=== PATIENT | female | born 1930 | race Caucasian/White ===

== ENCOUNTER 2018-11-25 16:07 | Emergency (ER) | payer MEDICARE, BC ==
--- NOTE | 2018-11-25 16:21 | EDM.PDOC ---
ED HPI GENERAL MEDICAL PROBLEM - General Stated Complaint: HEADACHE AND ABD PAIN Time Seen by Provider: 11/25/18 16:17 Source of Information: Reports: Patient History Limitations: Reports: No Limitations - History of Present Illness INITIAL COMMENTS - FREE TEXT/NARRATIVE: 88 y.o.w.f with h/o HTN was seen in the UC clinic and transferred to the ED because of dizziness, H/A and abd. pain. Pt is a poor historian, HPI was given by her legal guardian. PT C/O of suprapubic pain and gen Headache. No trauma, No N/V, no other acute med issue. BP 151/65 RR 17 Pulse ox 97% on RSA Pulse 71 Temp 36.6 Onset Date: 11/25/18 Onset Time: 06:00 Duration: Hour(s):, Intermittent, Waxing/Waning Location: Reports: Head, Abdomen Quality: Reports: Dull, Same as Previous Episode Improves with: Reports: None Worsens with: Reports: None Context: Reports: Sick Contact headache Pain Score (Numeric/FACES): 7 - Related Data Allergies Allergy/AdvReac Type Severity Reaction Status Date / Time heparin Allergy Rash Verified 11/25/18 16:59 Home Meds: Home Meds Acetaminophen [Acetaminophen Extra Strength] 1,000 mg PO BID PRN 12/21/15 [ History] Aspirin [Halfprin] 81 mg PO DAILY 12/21/15 [History] DULoxetine [Cymbalta] 30 mg PO DAILY 12/21/15 [History] Gabapentin [Neurontin] 100 mg PO TID 12/21/15 [History] Meclizine [Antivert] 12.5 mg PO BID PRN 12/21/15 [History] Tolterodine Tartrate [Tolterodine Tartrate ER] 4 mg PO DAILY 12/21/15 [History] amLODIPine [Norvasc] 5 mg PO DAILY 05/10/16 [History] Anastrozole [Arimidex] 1 mg PO DAILY 04/09/18 [History] Calcium Carbonate/Vitamin D3 [Calcium Carbonate/Vitamin D 600 MG-200 Unit] 1 tab PO BID 04/09/18 [History] Cholecalciferol (Vitamin D3) [Vitamin D3] 1,000 units PO DAILY 04/09/18 [History ] Levothyroxine [Synthroid] 100 mcg PO MOTUTHFRSA 04/09/18 [History] Levothyroxine [Synthroid] 150 mcg PO SUWE 04/09/18 [History] Metoprolol Tartrate [Lopressor] 50 mg PO BID tablet 04/13/18 [Rx] metFORMIN [Glucophage] 500 mg PO BIDMEALS tablet 04/13/18 [Rx] Levofloxacin 500 mg PO DAILY #10 tablet 11/25/18 [Rx] traMADol [Ultram] 50 mg PO Q4H PRN #6 tab 11/25/18 [Rx] Past Medical History HEENT History: Reports: Hard of Hearing Cardiovascular History: Reports: High Cholesterol, Hypertension Respiratory History: Reports: Pneumonia, Recurrent, SOB Gastrointestinal History: Reports: Colon Polyp, Diverticulosis, GERD, Hiatal Hernia Genitourinary History: Reports: Urinary Incontinence, UTI, Recurrent, Other ( See Below) Other Genitourinary History: 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 FOR [place] [employer] History: Reports: None Musculoskeletal History: Reports: Arthritis, Back Pain, Chronic, Gout Neurological History: Reports: Headaches, Chronic Psychiatric History: Reports: None Endocrine/Metabolic History: Reports: Diabetes, Type II, Hypothyroidism Hematologic History: Reports: Anticoagulation Therapy, Bleeding Disorder Other Hematologic History: leukemia Immunologic History: Reports: None Oncologic (Cancer) History: Reports: Breast, Leukemia, Renal Other Oncologic History: kidney Dermatologic History: Reports: Eczema - Infectious Disease History Infectious Disease History: Reports: Chicken Pox, Measles, Mumps - Past Surgical History Head Surgeries/Procedures: Reports: None HEENT Surgical History: Reports: Tonsillectomy Cardiovascular Surgical History: Reports: None GI Surgical History: Reports: Appendectomy, Cholecystectomy, Colonoscopy, EGD, Other (See Below) Other GI Surgeries/Procedures: HEMORRHOID SURGERY Female Surgical History: Reports: Breast Biopsy, Mastectomy, Nephrectomy Other Female Surgeries/Procedures: RIGHT KIDNEY REMOVED Endocrine Surgical History: Reports: None Neurological Surgical History: Reports: Laminectomy Musculoskeletal Surgical History: Reports: Knee Replacement Other Musculoskeletal Surgeries/Procedures:: rtka Oncologic Surgical History: Reports: Bone Marrow Aspiration, Mastectomy Social & Family History - Family History Family Medical History: Noncontributory Cardiac: Reports: Heart Failure : Reports: Diabetic Nephropathy OBGYN: Reports: Musculoskeletal: Reports: Arthritis Neurological: Reports: Dementia Endocrine/Metabolic: Reports: Diabetes, type II Oncologic: Reports: Breast, Leukemia - Caffeine Use Caffeine Use: Reports: Tea ED ROS GENERAL - Review of Systems Review Of Systems: Unable To Obtain ED EXAM, GENERAL - Physical Exam Exam: See Below Exam Limited By: Altered Mental Status General Appearance: Alert, WD/WN, Mild Distress, Obese Eye Exam: Bilateral Eye: Normal Inspection Ears: Normal External Exam, Normal Canal Ear Exam: Bilateral Ear: Auricle Normal Nose: Normal Inspection, Normal Mucosa, No Blood Throat/Mouth: Normal Inspection, Normal Lips, Normal Voice, No Airway Compromise , Other (poor dentition) Head: Atraumatic, Normocephalic Neck: Normal Inspection, Supple, Non-Tender, Full Range of Motion Respiratory/Chest: No Respiratory Distress, Lungs Clear, Normal Breath Sounds, No Accessory Muscle Use, Chest Non-Tender Cardiovascular: Normal Peripheral Pulses, Regular Rate, Rhythm, No Edema, No Gallop, No Rub Peripheral Pulses: 2+: Femoral (L) GI/Abdominal: Normal Bowel Sounds, Soft, Tender (suprapubic tenderness) (Female) Exam: Deferred Rectal (Female) Exam: Deferred Neurological: Alert, Oriented, CN II-XII Intact, Normal Cognition, Abnormal Gait (baseline) Psychiatric: Normal Affect, Normal Mood Skin Exam: Warm, Dry, Intact, Normal Color, No Rash Lymphatic: No Adenopathy EKG INTERPRETATION EKG Date: 11/25/18 Time: 16:35 Rhythm: NSR Rate (Beats/Min): 67 Jewett: LAD-Left Jewett Deviation P-Wave: Present QRS: Normal ST-T: Normal QT: Normal Comparison: NA - No Prior EKG Course - Vital Signs Text/Narrative:: 88 y.o.w.f with h/o HTN was seen in the UC clinic and transferred to the ED because of dizziness, H/A, cough and abd. pain. Pt is a poor historian, HPI was given by her legal guardian. PT C/O of suprapubic pain and gen Headache. No trauma, No N/V, no other acute med issue. BP 151/65 RR 17 Pulse ox 97% on RSA Pulse 71 Temp 36.6 PE: WNWD WF with headache and low abd, pain and a cough Imaging: CT head: NAD, CXR: NAD Labs: Md 1.4 Cr 1.1 BUN 24 GFR 47 CBC nl except MCV was 97.9 UA pos pos for UTI without hematuria Impression: Tension H/A, UTI Tx: Levaquin, Pyridium. Ultram Reexam: Improved Plan: D/C with instructions Last Recorded V/S: Last Vital Signs Temp 36.6 C 11/25/18 18:28 Pulse 68 11/25/18 18:28 Resp 17 11/25/18 18:28 BP 108/90 11/25/18 18:28 Pulse Ox 97 11/25/18 18:28 - Orders/Labs/Meds Orders: Active Orders 24 hr Category Date Time Status Chest 2V [CR] Stat Exams 11/25/18 16:46 Taken Head wo Cont [CT] Stat Exams 11/25/18 16:27 Taken EKG 12 Lead [EK] Routine Ther 11/25/18 16:20 Ordered Labs: Laboratory Tests 11/25/18 11/25/18 11/25/18 Range/Units 16:30 16:30 16:30 WBC 7.7 (4.5-12.0) X10-3/uL RBC 4.16 (3.23-5.20) x10(6)uL Hgb 13.1 (11.5-15.5) g/dL Hct 40.7 (30.0-51.3) % MCV 97.9 H (80-96) fL MCH 31.4 (27.7-33.6) pg MCHC 32.1 L (32.2-35.4) g/dL RDW 15.2 (11.5-15.5) % Plt Count 322 (125-369) X10(3)uL MPV 10.8 H (7.4-10.4) fL Neut % (Auto) 46.0 (46-82) % Lymph % (Auto) 35.8 (13-37) % [place] % (Auto) 12.0 (4-12) % Eos % (Auto) 3 (1.0-5.0) % Baso % (Auto) 3 H (0-2) % Neut # (Auto) 3.6 (1.6-8.3) # Lymph # (Auto) 2.8 (0.6-5.0) # [place] # (Auto) 0.9 (0.0-1.3) # Eos # (Auto) 0.2 (0.0-0.8) # Baso # (Auto) 0.2 (0.0-0.2) # PT 10.4 (8.7-11.1) INR 1.07 (0.89-1.13) Sodium 140 (135-145) mmol/L Potassium 4.2 (3.5-5.3) mmol/L Chloride 105 (100-110) mmol/L Carbon Dioxide 25 (21-32) mmol/L BUN 20 H (7-18) mg/dL Creatinine 1.1 H (0.55-1.02) mg/dL Est Cr Clr Drug Dosing TNP Estimated GFR (MDRD) 47 L (>60) BUN/Creatinine Ratio 18.2 (9-20) Glucose 124 H (80-116) mg/dL Calcium 9.2 (8.6-10.2) mg/dL Magnesium 1.4 L (1.8-2.5) mg/dL Troponin I (<0.017-0.056) ng/mL Urine Color (YELLOW) Urine Appearance (CLEAR) Urine pH (5.0-6.5) Ur Specific [place] (1.010-1.025) Urine Protein (NEGATIVE) mg/dL Urine Glucose (UA) (NORMAL) mg/dL Urine Ketones (NEGATIVE) mg/dL Urine Occult Blood (NEGATIVE) Urine Nitrite (NEGATIVE) Urine Bilirubin (NEGATIVE) Urine Urobilinogen (NEGATIVE) mg/dL Ur Leukocyte Esterase (NEGATIVE) Urine RBC (0-5) Urine WBC (0-5) Ur Squamous Epith Cells (NS,R,O) Urine Bacteria (NS) 11/25/18 11/25/18 Range/Units 16:30 17:10 WBC (4.5-12.0) X10-3/uL RBC (3.23-5.20) x10(6)uL Hgb (11.5-15.5) g/dL Hct (30.0-51.3) % MCV (80-96) fL MCH (27.7-33.6) pg MCHC (32.2-35.4) g/dL RDW (11.5-15.5) % Plt Count (125-369) X10(3)uL MPV (7.4-10.4) fL Neut % (Auto) (46-82) % Lymph % (Auto) (13-37) % [place] % (Auto) (4-12) % Eos % (Auto) (1.0-5.0) % Baso % (Auto) (0-2) % Neut # (Auto) (1.6-8.3) # Lymph # (Auto) (0.6-5.0) # [place] # (Auto) (0.0-1.3) # Eos # (Auto) (0.0-0.8) # Baso # (Auto) (0.0-0.2) # PT (8.7-11.1) INR (0.89-1.13) Sodium (135-145) mmol/L Potassium (3.5-5.3) mmol/L Chloride (100-110) mmol/L Carbon Dioxide (21-32) mmol/L BUN (7-18) mg/dL Creatinine (0.55-1.02) mg/dL Est Cr Clr Drug Dosing Estimated GFR (MDRD) (>60) BUN/Creatinine Ratio (9-20) Glucose (80-116) mg/dL Calcium (8.6-10.2) mg/dL Magnesium (1.8-2.5) mg/dL Troponin I < 0.017 L (<0.017-0.056) ng/mL Urine Color Yellow (YELLOW) Urine Appearance Clear (CLEAR) Urine pH 6.0 (5.0-6.5) Ur Specific [place] 1.005 L (1.010-1.025) Urine Protein Negative (NEGATIVE) mg/dL Urine Glucose (UA) Normal (NORMAL) mg/dL Urine Ketones Negative (NEGATIVE) mg/dL Urine Occult Blood Negative (NEGATIVE) Urine Nitrite Negative (NEGATIVE) Urine Bilirubin Negative (NEGATIVE) Urine Urobilinogen Normal (NEGATIVE) mg/dL Ur Leukocyte Esterase Large H (NEGATIVE) Urine RBC 0-5 (0-5) Urine WBC 20-30 H (0-5) Ur Squamous Epith Cells Occasional (NS,R,O) Urine Bacteria Few H (NS) Meds: Medications Discontinued Medications Generic Name Dose Route Start Last Admin Trade Name Freq PRN Reason Stop Dose Admin Levofloxacin 500 mg 11/25/18 17:54 11/25/18 18:10 Levaquin PO 11/25/18 17:55 500 mg ONETIME ONE Administration Tramadol HCl 100 mg 11/25/18 17:58 11/25/18 18:10 Ultram PO 11/25/18 17:59 100 mg ONETIME ONE Administration Departure - Departure Time of Disposition: 18:20 Disposition: Home, Self-Care 01 Condition: Good Clinical Impression: Tension, UTI (urinary tract infection) - Discharge Information Prescriptions: Levofloxacin 500 mg PO DAILY #10 tablet traMADol [Ultram] 50 mg PO Q4H PRN #6 tab PRN Reason: as needed for severe pain Instructions: Urinary Tract Infection, Adult, Tension Headache, Adult Referrals: Chi Tatum MD [Primary Care Provider] - Forms: ED Department Discharge Additional Instructions: Please take the meds as recommended, please f/u with your PMD, come back if your symptoms get worse acutely - My Orders Last 24 Hours: My Active Orders 11/25/18 16:20 EKG 12 Lead [EK] Routine 11/25/18 16:27 Head wo Cont [CT] Stat 11/25/18 16:46 Chest 2V [CR] Stat - Assessment/Plan Last 24 Hours: My Active Orders 11/25/18 16:20 EKG 12 Lead [EK] Routine 11/25/18 16:27 Head wo Cont [CT] Stat 11/25/18 16:46 Chest 2V [CR] Stat
[2018-11-25] MEDS ORDERED: Levofloxacin 500 MG Tab PO ONE (17:54)
[2018-11-25] MEDS ORDERED: traMADol 50 MG Tab PO ONE (17:58)
[2018-11-25 18:44] VITALS: BP 108/90
--- NOTE | 2018-11-26 10:43 | CR ---
INDICATION: Cough. CHEST: PA and lateral views of the chest, 11/25/18, were compared with and revealed the heart to remain prominent in size - slightly enlarged with LVE likely. The aorta is tortuous with calcification in the arch. Flowing hyperostotic changes anteriorly raise question of DISH. Additionally, there are bridging hyperostotic changes anterolaterally in the mid thoracic spine and a mild dextroconvex scoliosis of the lower middle thoracic spine. Prominent AP diameter with minimal flattening of diaphragm leaf on the lateral view and hyperaeration suggest the possibility of COPD, as previously. A definite active infiltrate or effusion was not identified with pulmonary markings appearing similar to the previous examination. Although no definite active infiltrate or effusion was seen, there is bronchial wall cuffing in the lower lung johnson - lung bases especially, which may be on the basis of fibrosis and/or active peribronchial disease and should be correlated clinically. IMPRESSION: 1. No definite acute process. However, there is bronchial wall cuffing, which should be correlated clinically. 2. ASHD with LVE. 3. Probable COPD - correlate clinically. 4. 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 MTDD
== END 2018-11-25 18:35 | disposition home or self-care (01) ==
LOC: FB.ED 16:07
DX: G44.209 Tension-type headache, unspecified, not intractable (principal); I10 Essential (primary) hypertension; E78.00 Pure hypercholesterolemia, unspecified; E11.9 Type 2 diabetes mellitus without complications; E03.9 Hypothyroidism, unspecified; N39.0 Urinary tract infection, site not specified; Z79.82 Long term (current) use of aspirin; Z79.899 Other long term (current) drug therapy; Z88.8 Allergy status to other drugs, medicaments and biological substances
CPT/HCPCS: 36415; 70450; 71046; 80048; 81001; 83735; 84484; 85025; 85610; 93005; 99284; A9270

== ENCOUNTER 2021-04-09 13:46 | Emergency (ER) | payer MEDICARE, BC ==
--- NOTE | 2021-04-09 14:31 | EDM.PDOC ---
ED HPI GENERAL MEDICAL PROBLEM - General Stated Complaint: CONSTIPATION Time Seen by Provider: 04/09/21 14:30 Source of Information: Reports: Patient, Family (Granddaughter) History Limitations: Reports: No Limitations - History of Present Illness INITIAL COMMENTS - FREE TEXT/NARRATIVE: 89-year-old female who presents to the emergency department after being referred here by the clinic because of constipation. The patient has had problems with constipation for quite some time and over the past 2 months has been followed in the clinic and she was initially placed on MiraLAX and Metamucil and things s eemed to break loose and she was doing better and then she would go down to 1 MiraLAX a day and then no MiraLAX and she seemed to develop worsening constipation with infrequent bowel movements and the feeling of bloating and discomfort in her abdomen with hard stools. This was a with things over the past week and particularly over the past 2 days and apparently she had not had a good bowel movement for about a week but did have a bowel movement this morning that was small and then while she was here in the emergency department had another bowel movement that was more substantial and she was feeling improved when I came in to severe. She is currently reporting aching in her abdomen that is rather diffuse and she rates it as a 2/10. She has had no nausea or vomiting. There have been no fevers or chills. She has been urinating okay. She also reports she has been eating and drinking per her normal. The concern that they have is that she could be having something more serious than just constipation and they would like workup which would address these concerns. There are no other associated signs or symptoms. There are no other modifying factors. Onset: Other (Ongoing for 2 months but worse over the past few days.) Duration: Getting Worse Location: Reports: Abdomen Quality: Reports: Ache, Other (Cramping) Severity: Moderate Improves with: Reports: None Worsens with: Reports: None Associated Symptoms: Reports: No Other Symptoms (Except as above.) Treatments BELT TURNER: Reports: Other (see below) Abdomen Pain Score (Numeric/FACES): 2 - Related Data Allergies Allergy/AdvReac Type Severity Reaction Status Date / Time heparin Allergy Rash Verified 11/25/18 16:59 Home Meds: Home Meds Acetaminophen [Acetaminophen Extra Strength] 1,000 mg PO BID PRN 12/21/15 [History] Aspirin [Halfprin] 81 mg PO DAILY 12/21/15 [History] DULoxetine [Cymbalta] 30 mg PO DAILY 12/21/15 [History] Gabapentin [Neurontin] 100 mg PO TID 12/21/15 [History] Meclizine [Antivert] 12.5 mg PO BID PRN 12/21/15 [History] Tolterodine Tartrate [Tolterodine Tartrate ER] 4 mg PO DAILY 12/21/15 [History] amLODIPine [Norvasc] 5 mg PO DAILY 05/10/16 [History] Anastrozole [Arimidex] 1 mg PO DAILY 04/09/18 [History] Calcium Carbonate/Vitamin D3 [Calcium Carbonate/Vitamin D 600 MG-200 Unit] 1 tab PO BID 04/09/18 [History] Cholecalciferol (Vitamin D3) [Vitamin D3] 1,000 units PO DAILY 04/09/18 [History] Levothyroxine [Synthroid] 100 mcg PO MOTUTHFRSA 04/09/18 [History] Levothyroxine [Synthroid] 150 mcg PO SUWE 04/09/18 [History] Metoprolol Tartrate [Lopressor] 50 mg PO BID tablet 04/13/18 [Rx] metFORMIN [Glucophage] 500 mg PO BIDMEALS tablet 04/13/18 [Rx] Levofloxacin 500 mg PO DAILY #10 tablet 11/25/18 [Rx] traMADol [Ultram] 50 mg PO Q4H PRN #6 tab 11/25/18 [Rx] Docusate Sodium [Colace] 100 mg PO BID #60 cap 04/09/21 [Rx] cephALEXin [Keflex] 500 mg PO TID #21 cap 04/09/21 [Rx] Past Medical History HEENT History: Reports: Hard of Hearing Cardiovascular History: Reports: High Cholesterol, Hypertension Respiratory History: Reports: Pneumonia, Recurrent, SOB Gastrointestinal History: Reports: Colon Polyp, Diverticulosis, GERD, Hiatal Hernia Genitourinary History: Reports: Urinary Incontinence, UTI, Recurrent, Other (See Below) Other Genitourinary History: 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 FOR [place] [employer] History: Reports: None Musculoskeletal History: Reports: Arthritis, Back Pain, Chronic, Gout Neurological History: Reports: Headaches, Chronic Psychiatric History: Reports: None Endocrine/Metabolic History: Reports: Diabetes, Type II, Hypothyroidism Hematologic History: Reports: Anticoagulation Therapy, Bleeding Disorder Other Hematologic History: leukemia Immunologic History: Reports: None Oncologic (Cancer) History: Reports: Breast, Leukemia, Renal Other Oncologic History: kidney Dermatologic History: Reports: Eczema - Infectious Disease History Infectious Disease History: Reports: Chicken Pox, Measles, Mumps - Past Surgical History Head Surgeries/Procedures: Reports: None HEENT Surgical History: Reports: Tonsillectomy Cardiovascular Surgical History: Reports: None GI Surgical History: Reports: Appendectomy, Cholecystectomy, Colonoscopy, EGD, Other (See Below) Other GI Surgeries/Procedures: HEMORRHOID SURGERY Female Surgical History: Reports: Breast Biopsy, Mastectomy, Nephrectomy Other Female Surgeries/Procedures: RIGHT KIDNEY REMOVED Endocrine Surgical History: Reports: None Neurological Surgical History: Reports: Laminectomy Musculoskeletal Surgical History: Reports: Knee Replacement Other Musculoskeletal Surgeries/Procedures:: rtka Oncologic Surgical History: Reports: Bone Marrow Aspiration, Mastectomy Social & Family History - Family History Cardiac: Reports: Heart Failure : Reports: Diabetic Nephropathy OBGYN: Reports: Musculoskeletal: Reports: Arthritis Neurological: Reports: Dementia Endocrine/Metabolic: Reports: Diabetes, type II Oncologic: Reports: Breast, Leukemia - Tobacco Use Tobacco Use Status *Q: Unknown Ever Used Tobacco (Nonsmoker) - Caffeine Use Caffeine Use: Reports: Tea Other Caffeine Use: soda at times. - Alcohol Use Alcohol Use History: No - Living Situation & Occupation Occupation: Retired ED ROS GENERAL - Review of Systems Review Of Systems: See Below Constitutional: Denies: Fever, Chills HEENT: Denies: Throat Pain, Vision Change Respiratory: Denies: Shortness of Breath, Cough Cardiovascular: Denies: Chest Pain, Lightheadedness, Palpitations GI/Abdominal: Reports: Abdominal Pain, Constipation. Denies: Nausea, Vomiting : Reports: Frequency. Denies: Dysuria, Hematuria Musculoskeletal: Denies: Back Pain Skin: Denies: Diaphoresis, Rash Neurological: Denies: Dizziness, Weakness Hematologic/Lymphatic: Denies: Easy Bleeding, Easy Bruising ED EXAM, GENERAL - Physical Exam Exam: See Below Exam Limited By: No Limitations General Appearance: Alert, No Apparent Distress, Obese Eye Exam: Bilateral Eye: EOMI, Normal Inspection, PERRL Ears: Normal External Exam, Hearing Grossly Normal Ear Exam: Bilateral Ear: Auricle Normal Nose: Normal Inspection, Normal Mucosa, No Blood Throat/Mouth: Normal Inspection, Normal Oropharynx, Normal Voice, No Airway Compromise Head: Atraumatic, Normocephalic Neck: Normal Inspection, Supple, Non-Tender, Lymphadenopathy (R) Respiratory/Chest: No Respiratory Distress, Lungs Clear, Normal Breath Sounds, No Accessory Muscle Use, Chest Non-Tender Cardiovascular: Normal Peripheral Pulses, Regular Rate, Rhythm, No Edema, Systolic Murmur (Mild) Peripheral Pulses: 2+: Radial (L), Radial (R), Dorsalis Pedis (L), Dorsalis Pedis (R) GI/Abdominal: Normal Bowel Sounds, Soft, No Mass, Tender (Mild tenderness in the lower abdomen and suprapubic area.) Back Exam: Normal Inspection, Full Range of Motion. No: CVA Tenderness (R), CVA Tenderness (L) Extremities: Normal Inspection, Normal Range of Motion, Non-Tender, Normal Capillary Refill, Pedal Edema Neurological: Alert, Oriented, CN II-XII Intact, Normal Cognition, No Motor/Sensory Deficits Psychiatric: Normal Affect Skin Exam: Warm, Dry, Intact, Normal Color, No Rash Course - Vital Signs Last Recorded V/S: Last Vital Signs Temp 36.4 C 04/09/21 14:00 Pulse 62 04/09/21 18:05 Resp 18 04/09/21 18:05 BP 156/73 H 04/09/21 18:05 Pulse Ox 97 04/09/21 18:05 - Orders/Labs/Meds Labs: Laboratory Tests 04/09/21 04/09/21 04/09/21 Range/Units 15:09 15:09 15:09 WBC 10.9 H (3.0-10.3) x10-3/uL RBC 4.65 (3.60-5.20) x10(6)uL Hgb 13.9 (11.4-15.5) g/dL Hct 45.2 (34.2-48.2) % MCV 97.0 (76.7-100.5) fL MCH 29.9 (23.9-33.9) pg MCHC 30.8 L (31.9-34.8) g/dL RDW 18.4 H (12.3-16.5) % Plt Count 260 (151-488) x10(3)uL MPV 8.6 (7.1-12.4) fL Add Manual Diff Yes Neutrophils % (Manual) 45 L (46-82) % Band Neutrophils % 11 H (0-6) % Lymphocytes % (Manual) 29 (13-37) % Monocytes % (Manual) 11 (4-12) % Eosinophils % (Manual) 1 (0-5) % Basophils % (Manual) 3 H (0-2) % Nucleated RBCs 4 H (0-0) /100WBC Anisocytosis Moderate H Sodium 143 (135-145) mmol/L Potassium 4.7 (3.5-5.3) mmol/L Chloride 106 (100-110) mmol/L Carbon Dioxide 29 (21-32) mmol/L BUN 25 H (7-18) mg/dL Creatinine 1.6 H (0.55-1.02) mg/dL Est Cr Clr Drug Dosing 22.31 mL/min Estimated GFR (MDRD) 30 L (>60) BUN/Creatinine Ratio 15.6 (9-20) Glucose 141 H (80-116) mg/dL Calcium 8.7 (8.6-10.2) mg/dL Magnesium 1.8 (1.8-2.5) mg/dL Total Bilirubin 0.4 (0.1-1.3) mg/dL AST 14 (5-25) IU/L ALT 20 D (12-36) U/L Alkaline Phosphatase 48 L (56-112) IU/L C-Reactive Protein < 0.2 L (0.5-0.9) mg/dL Total Protein 7.0 (6.0-8.0) g/dL Albumin 3.3 (2.9-4.5) g/dL Globulin 3.7 g/dL Albumin/Globulin Ratio 0.9 Urine Color (YELLOW) Urine Appearance (CLEAR) Urine pH (5.0-6.5) Ur Specific [place] (1.010-1.025) Urine Protein (NEGATIVE) mg/dL Urine Glucose (UA) (NORMAL) mg/dL Urine Ketones (NEGATIVE) mg/dL Urine Occult Blood (NEGATIVE) Urine Nitrite (NEGATIVE) Urine Bilirubin (NEGATIVE) Urine Urobilinogen (NEGATIVE) mg/dL Ur Leukocyte Esterase (NEGATIVE) Urine RBC (0-5) Urine WBC (0-5) Ur Squamous Epith Cells (NS,R,O) Urine Bacteria (NS) 04/09/21 Range/Units 17:19 WBC (3.0-10.3) x10-3/uL RBC (3.60-5.20) x10(6)uL Hgb (11.4-15.5) g/dL Hct (34.2-48.2) % MCV (76.7-100.5) fL MCH (23.9-33.9) pg MCHC (31.9-34.8) g/dL RDW (12.3-16.5) % Plt Count (151-488) x10(3)uL MPV (7.1-12.4) fL Add Manual Diff Neutrophils % (Manual) (46-82) % Band Neutrophils % (0-6) % Lymphocytes % (Manual) (13-37) % Monocytes % (Manual) (4-12) % Eosinophils % (Manual) (0-5) % Basophils % (Manual) (0-2) % Nucleated RBCs (0-0) /100WBC Anisocytosis Sodium (135-145) mmol/L Potassium (3.5-5.3) mmol/L Chloride (100-110) mmol/L Carbon Dioxide (21-32) mmol/L BUN (7-18) mg/dL Creatinine (0.55-1.02) mg/dL Est Cr Clr Drug Dosing mL/min Estimated GFR (MDRD) (>60) BUN/Creatinine Ratio (9-20) Glucose (80-116) mg/dL Calcium (8.6-10.2) mg/dL Magnesium (1.8-2.5) mg/dL Total Bilirubin (0.1-1.3) mg/dL AST (5-25) IU/L ALT (12-36) U/L Alkaline Phosphatase (56-112) IU/L C-Reactive Protein (0.5-0.9) mg/dL Total Protein (6.0-8.0) g/dL Albumin (2.9-4.5) g/dL Globulin g/dL Albumin/Globulin Ratio Urine Color Yellow (YELLOW) Urine Appearance Clear (CLEAR) Urine pH 7.0 H (5.0-6.5) Ur Specific [place] 1.010 (1.010-1.025) Urine Protein Negative (NEGATIVE) mg/dL Urine Glucose (UA) Normal (NORMAL) mg/dL Urine Ketones Negative (NEGATIVE) mg/dL Urine Occult Blood Negative (NEGATIVE) Urine Nitrite Negative (NEGATIVE) Urine Bilirubin Negative (NEGATIVE) Urine Urobilinogen Normal (NEGATIVE) mg/dL Ur Leukocyte Esterase Moderate H (NEGATIVE) Urine RBC 0-5 (0-5) Urine WBC 10-20 H (0-5) Ur Squamous Epith Cells Few H (NS,R,O) Urine Bacteria Moderate H (NS) Meds: Medications Discontinued Medications Generic Name Dose Route Start Last Admin Trade Name Freq PRN Reason Stop Dose Admin Cephalexin 1,000 mg 04/09/21 18:14 04/09/21 18:22 Cephalexin 500 Mg Cap PO 04/09/21 18:15 1,000 mg ONETIME ONE Administration - Radiology Interpretation Free Text/Narrative:: CT scan of abdomen and pelvis showed no evidence of obstruction. There is a slightly thickened bladder wall with some concern of cystitis. There were no other acute abnormalities. This was per the radiologist Dr. Madison who called and gave me a verbal report. - Re-Assessments/Exams Free Text/Narrative Re-Assessment/Exam: 04/09/21 16:55: All of the patient's blood tests were reassuring except for some bands on her differential. Her creatinine was 1.6 as well. She report is called to me by Dr. Madison and for the most part is unremarkable. Her is some stool throughout the colon but there is no evidence of obstruction. There is some evidence of a possible cystitis. A urine has not been set yet and I'm awaiting these results. 04/09/21 18:00: Urinalysis did show some evidence of infection. Her. The patient will need to be placed on antibiotics to treat for potential urinary tract infection. I will place her on Keflex 500 mg. In addition, I will outline the patient a bowel regimen and she will need to follow-up with her doctors in the clinic. She may need a repeat colonoscopy that would be up to the patient's primary provider. Departure - Departure Time of Disposition: 18:07 Disposition: Home, Self-Care 01 Condition: Good Clinical Impression: UTI (urinary tract infection) Qualifiers: Urinary tract infection type: site unspecified Hematuria presence: without hematuria Qualified Code(s): N39.0 - Urinary tract infection, site not specified Constipation Qualifiers: Constipation type: unspecified constipation type Qualified Code(s): K59.00 - Co nstipation, unspecified - Discharge Information Prescriptions: Docusate Sodium [Colace] 100 mg PO BID #60 cap cephALEXin [Keflex] 500 mg PO TID #21 cap Instructions: Constipation, Adult, [id number], Urinary Tract Infection, Adult, [id number], Cephalexin Tablets or Capsules Referrals: Chi Tatum MD [Primary Care Provider] - Forms: ED Department Discharge Additional Instructions: Your blood tests were reassuring except he did have some some abnormal white blood cells. This may be from your previous leukemia and not represent anything to be concerned about but it is something that he should follow-up for your primary provider. Her creatinine was 1.6 which says that you have some mild problems with your kidney dysfunction. The CT scan of your abdomen and pelvis did show that you had stool throughout her colon that is consistent with constance escobar but there was no evidence of obstruction and there was nothing that showed any serious problems. It is possible that there could be something inside the colon that is not seen on the CAT scan and he may still yet need another colonoscopy. That would be up to your primary provider. He did have thickening of the wall of your bladder and your urine looked like there was an infection as well. I am placing on an antibiotic to treat for this (Keflex 500 mg). You were given your first dose in the emergency department and I sent the remainder of your prescription to your pharmacy. In regard to your constipation. I would recommend you take MiraLAX 1 capful in 8 ounces of water or juice twice daily until you have good results that bowel movement. After this, you can go down to taking 1 In 8 ounces of water daily. I have also prescribed a stool softeners to take every day. You need to increase your fluid intake. Follow-up with your primary provider this next week. Back to the emergency department for fever, severe weakness, blood in your stool, unrelenting vomiting or any other concerning signs or symptoms.
[2021-04-09] MEDS ORDERED: Cephalexin 500 MG Cap PO ONE (18:14)
--- NOTE | 2021-04-09 18:34 | CT ---
INDICATION: Abdominal pain. Constipation. CT ABDOMEN AND PELVIS WITHOUT CONTRAST: Spiral 3.75 mm axial sections were obtained through the abdomen and pelvis with sagittal and coronal reconstructions - no contrast. There are again noted some heavy markings at the lung bases, left greater than right, most likely fibrotic in nature, with little change from the previous study. The heart is at the upper limits of normal in size. No pericardial effusion was seen. The gallbladder is absent, compatible with history of its removal. The liver was unremarkable. The adrenal glands appeared normal. Absence of the right kidney is noted, compatible with nephrectomy, apparently for CA of the right kidney. The left kidney showed evidence of renal cortical scarring and some calcifications. No obstructive uropathy was seen. The spleen had a normal appearance. The pancreas is extensively fatty replaced. A small nodular density at the tail of the pancreas is unchanged in appearance and may represent a lymph node. It measured 14 mm. No retroperitoneal mass was seen with minimal retroperitoneal lymphadenopathy, which is nonspecific. Calcifications are noted in the major vessels. The appendix is absent, compatible with history of its removal. No free air or bowel obstruction was seen with gas and stool throughout the colon, including the rectum. No findings to suggest a mechanical obstruction is seen. No inguinal or ventral hernia was identified. Hypertrophic degenerative changes and multiple levels of disc disease are noted in the thoracolumbosacral spine, similar to the previous study. No organomegaly, mass lesions or free fluid collections were identified in the abdomen or pelvis - no findings to strongly suggest metastatic disease was identified. IMPRESSION: 1. No findings to strongly suggest metastatic disease. 2. No bowel obstruction. 3. Post appendectomy, cholecystectomy. 4. Fibrotic changes at the lung bases, left greater than right. 5. ASD. 6. 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 Report was called to Dr. Cummings at 1708 hours, 04/09/21. [facility]
[2021-04-09 19:18] VITALS: BP 156/73; PULSE 62
--- NOTE | 2021-04-13 14:34 | PCM.SN.2 ---
- Free Text/Narrative Note: ERIC Son called pt and requested that she stop Keflex and begin sulfa pt in ED 4d ago, UC shows Serratia and Proteus with Serratia resistant to cefazolin and cefotetan but sensitive to sulfa tmp/smx DS bid $14 NR sent electronically to [facility] Documentation
== END 2021-04-09 18:35 | disposition home or self-care (01) ==
LOC: FB.ED 13:46
DX: K59.00 Constipation, unspecified (principal); N39.0 Urinary tract infection, site not specified; E78.00 Pure hypercholesterolemia, unspecified; I10 Essential (primary) hypertension; K21.9 Gastro-esophageal reflux disease without esophagitis; E11.9 Type 2 diabetes mellitus without complications; E03.9 Hypothyroidism, unspecified; Z88.8 Allergy status to other drugs, medicaments and biological substances; Z79.82 Long term (current) use of aspirin; Z79.899 Other long term (current) drug therapy
CPT/HCPCS: 36415; 74176; 80053; 81001; 83735; 85025; 86140; 87086; 87088; 87186; 99284-25; A9270-GY

== ENCOUNTER 2021-07-19 16:25 | Inpatient (IN) | payer MEDICARE, BC ==
[2021-07-19] MEDS ORDERED: Morphine 4 MG/ML VIAL IVPUSH ONE ×2 (16:58→18:21)
[2021-07-19] MEDS ORDERED: Ondansetron 4 MG/2 ML SDV IVPUSH ONE (16:58)
[2021-07-19] MEDS ORDERED: Sodium Chloride 0.9% 1,000 ML IV ONE (17:07)
[2021-07-19 18:28] LABS: CORONAVIRUS COVID-19 NAA NEGATIVE (NEGATIVE)
[2021-07-19] MEDS ORDERED: Acetaminophen 500 MG Tab PO ONE (20:35)
[2021-07-19] MEDS ORDERED: Magnesium Hydroxide 400 MG/5 ML Susp 30 ML Cup PO PRN (20:45)
[2021-07-19] MEDS ORDERED: Ciprofloxacin in D5W 400 MG in Premix Bag 1 BAG IV SCH ×2 (20:45)
[2021-07-19] MEDS ORDERED: Acetaminophen 325 MG Tab PO SCH (21:00)
[2021-07-19] MEDS ORDERED: Ciprofloxacin in D5W 400 MG in Premix Bag 1 BAG IV ONE ×2 (21:15)
[2021-07-19] MEDS: Docusate Sodium 100 MG Cap PO SCH (21:19)
[2021-07-19] MEDS: Gabapentin 100 MG Cap PO SCH (21:19)
[2021-07-19] MEDS: Metoprolol Tartrate 50 MG Tab PO SCH (21:29)
[2021-07-20] MEDS: Levothyroxine 150 MCG Tab PO SCH (05:48)
[2021-07-20] MEDS: Pantoprazole 40 MG Tab.CR PO SCH (06:30)
[2021-07-20] MEDS ORDERED: metFORMIN 500 MG Tab PO SCH (08:00)
[2021-07-20] MEDS ORDERED: oxyCODONE 5 MG Tab PO PRN ×2 (08:12→08:13)
[2021-07-20] MEDS ORDERED: Non-Formulary Medication 1 Each (Omeprazole [Omeprazole] 20 MG Cap.Cr) PO SCH (09:00)
[2021-07-20] MEDS: DULoxetine 30 MG Cap PO SCH (09:05)
[2021-07-20] MEDS: Acetaminophen 500 MG Tab PO SCH ×4 (09:05→21:44)
[2021-07-20] MEDS: Docusate Sodium 100 MG Cap PO SCH (09:05)
[2021-07-20] MEDS: Gabapentin 100 MG Cap PO SCH ×3 (09:06→21:16)
[2021-07-20] MEDS: amLODIPine 5 MG Tab PO SCH (09:06)
[2021-07-20] MEDS: Metoprolol Tartrate 50 MG Tab PO SCH ×2 (09:06→21:03)
[2021-07-20] MEDS: Tolterodine 4 MG Cap.ER PO SCH (09:06)
[2021-07-20] MEDS: Calcium Polycarbophil 625 MG Tab PO SCH ×2 (10:15→14:07)
[2021-07-20] MEDS: Sodium Chloride 0.9% 1,000 ML IV SCH ×2 (10:32→21:43)
[2021-07-20] MEDS ORDERED: Polyethylene Glycol 3350 Powder 17 GM Packet PO PRN (15:08)
[2021-07-20] MEDS: Ciprofloxacin in D5W 400 MG in Premix Bag 1 BAG IV SCH ×2 (16:00)
[2021-07-20] MEDS ORDERED: Simvastatin 40 MG Tab PO SCH (21:00)
[2021-07-21] MEDS ORDERED: Levothyroxine 100 MCG Tab PO SCH (06:00)
[2021-07-21] MEDS: Pantoprazole 40 MG Tab.CR PO SCH (06:53)
[2021-07-21] MEDS ORDERED: Bisacodyl 10 MG Supp RECTAL PRN (08:00)
[2021-07-21] MEDS: Acetaminophen 500 MG Tab PO SCH ×4 (08:46→22:05)
[2021-07-21] MEDS: Calcium Polycarbophil 625 MG Tab PO SCH (08:46)
[2021-07-21] MEDS: Tolterodine 4 MG Cap.ER PO SCH (08:46)
[2021-07-21] MEDS: Gabapentin 100 MG Cap PO SCH ×3 (08:47→21:00)
[2021-07-21] MEDS: DULoxetine 30 MG Cap PO SCH (08:47)
[2021-07-21] MEDS: Metoprolol Tartrate 50 MG Tab PO SCH ×2 (08:47→20:37)
[2021-07-21] MEDS: amLODIPine 5 MG Tab PO SCH (08:48)
[2021-07-21] MEDS ORDERED: Docusate Sodium 100 MG Cap PO SCH ×2 (09:00)
[2021-07-21] MEDS: Ciprofloxacin in D5W 400 MG in Premix Bag 1 BAG IV SCH ×2 (09:45)
[2021-07-22] MEDS: Ciprofloxacin in D5W 400 MG in Premix Bag 1 BAG IV SCH ×2 (04:07)
[2021-07-22] MEDS ORDERED: Sodium Chloride 0.9% 10 ML Syringe FLUSH PRN (04:09)
[2021-07-22] MEDS: Pantoprazole 40 MG Tab.CR PO SCH (06:32)
[2021-07-22] MEDS: Levothyroxine 150 MCG Tab PO SCH (06:33)
[2021-07-22] MEDS ORDERED: Polyethylene Glycol 3350 Powder 17 GM Packet PO SCH (09:00)
[2021-07-22] MEDS ORDERED: Ciprofloxacin 250 MG Tab PO SCH (09:00)
[2021-07-22] MEDS: Tolterodine 4 MG Cap.ER PO SCH (09:03)
[2021-07-22] MEDS: DULoxetine 30 MG Cap PO SCH (09:04)
[2021-07-22] MEDS: amLODIPine 5 MG Tab PO SCH (09:05)
[2021-07-22] MEDS: Metoprolol Tartrate 50 MG Tab PO SCH (09:06)
[2021-07-22] MEDS: Calcium Polycarbophil 625 MG Tab PO SCH (09:06)
[2021-07-22] MEDS: Acetaminophen 500 MG Tab PO SCH (09:06)
[2021-07-22 09:08] VITALS: BP 132/70; PULSE 73
[2021-07-22] MEDS: Gabapentin 100 MG Cap PO SCH (09:08)
== END 2021-07-22 11:00 | disposition swing bed (61) | DRG 605 ==
LOC: SUPCPDRO 16:25 → FB.ED 16:25 → FB.MS 20:29
PROVIDERS: ADMIT Emergency Medicine; ATTEND Family Medicine
DX: S70.11XA Contusion of right thigh, initial encounter (principal); W18.39XA Other fall on same level, initial encounter; N30.00 Acute cystitis without hematuria; R53.1 Weakness; D72.10 Eosinophilia, unspecified; R82.81 Pyuria; D72.19 Other eosinophilia; J82.81 Chronic eosinophilic pneumonia; H91.90 Unspecified hearing loss, unspecified ear; E78.00 Pure hypercholesterolemia, unspecified; Z20.822 Contact with and (suspected) exposure to COVID-19; Z96.653 Presence of artificial knee joint, bilateral; R32 Unspecified urinary incontinence; M19.90 Unspecified osteoarthritis, unspecified site; W18.30XA Fall on same level, unspecified, initial encounter; S83.91XA Sprain of unspecified site of right knee, initial encounter; E78.5 Hyperlipidemia, unspecified; Z79.84 Long term (current) use of oral hypoglycemic drugs; Z79.82 Long term (current) use of aspirin; Z79.890 Hormone replacement therapy; Z79.899 Other long term (current) drug therapy; I12.9 Hypertensive chronic kidney disease with stage 1 through stage 4 chronic kidney disease, or unspecified chronic kidney disease; N18.9 Chronic kidney disease, unspecified; E11.22 Type 2 diabetes mellitus with diabetic chronic kidney disease; E03.9 Hypothyroidism, unspecified; K21.9 Gastro-esophageal reflux disease without esophagitis; Z85.6 Personal history of leukemia; Z85.528 Personal history of other malignant neoplasm of kidney; Z85.3 Personal history of malignant neoplasm of breast; Z79.4 Long term (current) use of insulin; Z90.10 Acquired absence of unspecified breast and nipple; Y92.091 Bathroom in other non-institutional residence as the place of occurrence of the external cause; Z87.01 Personal history of pneumonia (recurrent); Z87.19 Personal history of other diseases of the digestive system; Z87.440 Personal history of urinary (tract) infections; Z79.01 Long term (current) use of anticoagulants; Z90.49 Acquired absence of other specified parts of digestive tract; Z98.42 Cataract extraction status, left eye; Z98.41 Cataract extraction status, right eye; Z90.89 Acquired absence of other organs; Z90.5 Acquired absence of kidney
CPT/HCPCS: 0241U; 36415; 71045; 73562; 80048; 80053; 81001; 82550; 82947; 84443; 84484; 85025; 85610; 86140; 87086; 87088; 87186; 88104; 93005; 94150; 97161; 97166; 97530; 51702; 96374; 96375; 96376; 99284-25; A9270-GY; J0744; J2270; J2405; J7030

== ENCOUNTER 2021-07-22 09:07 | Inpatient (IN) | payer MEDICARE, BC ==
[2021-07-22] MEDS ORDERED: Meclizine 12.5 MG Tab PO PRN (13:16)
[2021-07-22] MEDS ORDERED: Bisacodyl 10 MG Supp RECTAL PRN (13:16)
[2021-07-22] MEDS ORDERED: Magnesium Hydroxide 400 MG/5 ML Susp 30 ML Cup PO PRN (13:16)
[2021-07-22] MEDS ORDERED: Glycerin Pediatric 1.2 GM Supp RECTAL PRN (13:16)
[2021-07-22] MEDS ORDERED: PEG 400/Propylene Glycol Ophth Soln 15 ML Bottle EYEBOTH PRN (13:43)
[2021-07-22] MEDS: Acetaminophen 500 MG Tab PO SCH ×3 (15:26→21:30)
[2021-07-22] MEDS: Gabapentin 100 MG Cap PO SCH ×2 (15:27→21:30)
[2021-07-22] MEDS ORDERED: CALCIUM CARBONATE PO SCH (21:00)
[2021-07-22] MEDS ORDERED: [UNRECOGNIZED DRUG - OTHER] PO SCH (21:00)
[2021-07-22] MEDS ORDERED: VITAMIN D3 PO SCH (21:00)
[2021-07-22] MEDS: Metoprolol Tartrate 50 MG Tab PO SCH (21:30)
[2021-07-22] MEDS: Simvastatin 40 MG Tab PO SCH (21:30)
[2021-07-23] MEDS: Pantoprazole 40 MG Tab.CR PO SCH (05:57)
[2021-07-23] MEDS: Levothyroxine 100 MCG Tab PO SCH (05:57)
[2021-07-23] MEDS: Polyethylene Glycol 3350 Powder 17 GM Packet PO PRN (07:50)
[2021-07-23] MEDS: Acetaminophen 500 MG Tab PO SCH ×4 (08:00→20:20)
[2021-07-23] MEDS: DULoxetine 30 MG Cap PO SCH (08:00)
[2021-07-23] MEDS: amLODIPine 5 MG Tab PO SCH (08:01)
[2021-07-23] MEDS: Metoprolol Tartrate 50 MG Tab PO SCH ×2 (08:01→20:20)
[2021-07-23] MEDS: Gabapentin 100 MG Cap PO SCH ×3 (08:02→20:20)
[2021-07-23] MEDS: Calcium Polycarbophil 625 MG Tab PO SCH (08:02)
[2021-07-23] MEDS: Tolterodine 4 MG Cap.ER PO SCH (08:02)
[2021-07-23] MEDS: Docusate Sodium 100 MG Cap PO SCH (09:03)
[2021-07-23] MEDS: Cyanocobalamin (Vitamin B12) 1,000 MCG Tab PO SCH (09:03)
[2021-07-24] MEDS: Levothyroxine 150 MCG Tab PO SCH (06:05)
[2021-07-24] MEDS: Pantoprazole 40 MG Tab.CR PO SCH (06:05)
[2021-07-24] MEDS: amLODIPine 5 MG Tab PO SCH (08:38)
[2021-07-24] MEDS: Docusate Sodium 100 MG Cap PO SCH (08:38)
[2021-07-24] MEDS: DULoxetine 30 MG Cap PO SCH (08:39)
[2021-07-24] MEDS: Cyanocobalamin (Vitamin B12) 1,000 MCG Tab PO SCH (08:39)
[2021-07-24] MEDS: Metoprolol Tartrate 50 MG Tab PO SCH ×2 (08:39→20:13)
[2021-07-24] MEDS: Acetaminophen 500 MG Tab PO SCH ×4 (08:39→20:13)
[2021-07-24] MEDS: Tolterodine 4 MG Cap.ER PO SCH (08:40)
[2021-07-24] MEDS: Calcium Polycarbophil 625 MG Tab PO SCH (08:41)
[2021-07-24] MEDS: Gabapentin 100 MG Cap PO SCH ×3 (08:43→20:14)
[2021-07-24] MEDS ORDERED: Benzonatate 100 MG Cap PO PRN (09:04)
[2021-07-24] MEDS: Codeine/guaiFENesin 10-100 MG/5 ML Syrup 5 ML Cup PO PRN ×3 (09:52→22:00)
[2021-07-24] MEDS: Simvastatin 40 MG Tab PO SCH (20:13)
[2021-07-25] MEDS: Pantoprazole 40 MG Tab.CR PO SCH (06:34)
[2021-07-25] MEDS: Levothyroxine 150 MCG Tab PO SCH (06:36)
[2021-07-25] MEDS: Docusate Sodium 100 MG Cap PO SCH (09:27)
[2021-07-25] MEDS: Codeine/guaiFENesin 10-100 MG/5 ML Syrup 5 ML Cup PO PRN ×2 (09:27→16:37)
[2021-07-25] MEDS: DULoxetine 30 MG Cap PO SCH (09:27)
[2021-07-25] MEDS: Acetaminophen 500 MG Tab PO SCH ×4 (09:27→20:57)
[2021-07-25] MEDS: Metoprolol Tartrate 50 MG Tab PO SCH ×2 (09:27→20:56)
[2021-07-25] MEDS: Gabapentin 100 MG Cap PO SCH ×3 (09:27→20:56)
[2021-07-25] MEDS: amLODIPine 5 MG Tab PO SCH (09:28)
[2021-07-25] MEDS: Cyanocobalamin (Vitamin B12) 1,000 MCG Tab PO SCH (09:28)
[2021-07-25] MEDS: Tolterodine 4 MG Cap.ER PO SCH (09:28)
[2021-07-25] MEDS: Calcium Polycarbophil 625 MG Tab PO SCH (09:28)
[2021-07-26] MEDS: Codeine/guaiFENesin 10-100 MG/5 ML Syrup 5 ML Cup PO PRN ×2 (04:35→13:39)
[2021-07-26] MEDS: Levothyroxine 100 MCG Tab PO SCH (05:28)
[2021-07-26] MEDS: Pantoprazole 40 MG Tab.CR PO SCH (05:28)
[2021-07-26] MEDS: Docusate Sodium 100 MG Cap PO SCH (09:02)
[2021-07-26] MEDS: DULoxetine 30 MG Cap PO SCH (09:02)
[2021-07-26] MEDS: Acetaminophen 500 MG Tab PO SCH ×4 (09:03→20:46)
[2021-07-26] MEDS: Cyanocobalamin (Vitamin B12) 1,000 MCG Tab PO SCH (09:03)
[2021-07-26] MEDS: Gabapentin 100 MG Cap PO SCH ×3 (09:03→20:52)
[2021-07-26] MEDS: Calcium Polycarbophil 625 MG Tab PO SCH (09:03)
[2021-07-26] MEDS: Tolterodine 4 MG Cap.ER PO SCH (09:03)
[2021-07-26] MEDS: amLODIPine 5 MG Tab PO SCH (09:06)
[2021-07-26] MEDS: Metoprolol Tartrate 50 MG Tab PO SCH ×2 (09:08→20:45)
[2021-07-26] MEDS: Simvastatin 40 MG Tab PO SCH (20:47)
[2021-07-27] MEDS: Codeine/guaiFENesin 10-100 MG/5 ML Syrup 5 ML Cup PO PRN ×2 (03:41→20:09)
[2021-07-27] MEDS: Levothyroxine 150 MCG Tab PO SCH (06:11)
[2021-07-27] MEDS: Pantoprazole 40 MG Tab.CR PO SCH (06:11)
[2021-07-27] MEDS: Docusate Sodium 100 MG Cap PO SCH (08:04)
[2021-07-27] MEDS: Calcium Polycarbophil 625 MG Tab PO SCH (08:04)
[2021-07-27] MEDS: Tolterodine 4 MG Cap.ER PO SCH (08:04)
[2021-07-27] MEDS: DULoxetine 30 MG Cap PO SCH (08:04)
[2021-07-27] MEDS: Metoprolol Tartrate 50 MG Tab PO SCH ×2 (08:04→20:12)
[2021-07-27] MEDS: Acetaminophen 500 MG Tab PO SCH ×4 (08:05→20:10)
[2021-07-27] MEDS: amLODIPine 5 MG Tab PO SCH (08:05)
[2021-07-27] MEDS: Cyanocobalamin (Vitamin B12) 1,000 MCG Tab PO SCH (08:07)
[2021-07-27] MEDS: Gabapentin 100 MG Cap PO SCH ×3 (08:10→20:23)
[2021-07-27] MEDS: TRIAMCINOLONE ACETONIDE 0.1% TOP PRN (13:42)
[2021-07-28] MEDS: Levothyroxine 100 MCG Tab PO SCH (06:04)
[2021-07-28] MEDS: Pantoprazole 40 MG Tab.CR PO SCH (06:04)
[2021-07-28] MEDS: Gabapentin 100 MG Cap PO SCH ×3 (09:43→20:36)
[2021-07-28] MEDS: Tolterodine 4 MG Cap.ER PO SCH (09:43)
[2021-07-28] MEDS: Metoprolol Tartrate 50 MG Tab PO SCH ×2 (09:44→20:36)
[2021-07-28] MEDS: Acetaminophen 500 MG Tab PO SCH ×4 (09:44→20:36)
[2021-07-28] MEDS: DULoxetine 30 MG Cap PO SCH (09:44)
[2021-07-28] MEDS: Calcium Polycarbophil 625 MG Tab PO SCH (09:44)
[2021-07-28] MEDS: Docusate Sodium 100 MG Cap PO SCH (09:44)
[2021-07-28] MEDS: Cyanocobalamin (Vitamin B12) 1,000 MCG Tab PO SCH (09:44)
[2021-07-28] MEDS: amLODIPine 5 MG Tab PO SCH (09:45)
[2021-07-28] MEDS: Simvastatin 40 MG Tab PO SCH (20:37)
[2021-07-29] MEDS: Levothyroxine 150 MCG Tab PO SCH (05:56)
[2021-07-29] MEDS: Pantoprazole 40 MG Tab.CR PO SCH (05:57)
[2021-07-29] MEDS: Gabapentin 100 MG Cap PO SCH ×3 (08:11→20:44)
[2021-07-29] MEDS: Calcium Polycarbophil 625 MG Tab PO SCH (08:11)
[2021-07-29] MEDS: DULoxetine 30 MG Cap PO SCH (08:11)
[2021-07-29] MEDS: Cyanocobalamin (Vitamin B12) 1,000 MCG Tab PO SCH (08:11)
[2021-07-29] MEDS: Tolterodine 4 MG Cap.ER PO SCH (08:11)
[2021-07-29] MEDS: Acetaminophen 500 MG Tab PO SCH ×4 (08:12→20:41)
[2021-07-29] MEDS: Metoprolol Tartrate 50 MG Tab PO SCH ×2 (08:12→20:42)
[2021-07-29] MEDS: amLODIPine 5 MG Tab PO SCH (08:12)
[2021-07-29] MEDS: Docusate Sodium 100 MG Cap PO SCH (08:13)
[2021-07-30] MEDS: Levothyroxine 100 MCG Tab PO SCH (05:12)
[2021-07-30] MEDS: Pantoprazole 40 MG Tab.CR PO SCH (05:13)
[2021-07-30] MEDS: Acetaminophen 500 MG Tab PO SCH ×4 (08:42→21:21)
[2021-07-30] MEDS: Metoprolol Tartrate 50 MG Tab PO SCH ×2 (08:42→21:23)
[2021-07-30] MEDS: Gabapentin 100 MG Cap PO SCH ×3 (08:42→21:21)
[2021-07-30] MEDS: amLODIPine 5 MG Tab PO SCH (08:42)
[2021-07-30] MEDS: Tolterodine 4 MG Cap.ER PO SCH (08:43)
[2021-07-30] MEDS: Cyanocobalamin (Vitamin B12) 1,000 MCG Tab PO SCH (08:43)
[2021-07-30] MEDS: Docusate Sodium 100 MG Cap PO SCH (08:43)
[2021-07-30] MEDS: Calcium Polycarbophil 625 MG Tab PO SCH (08:43)
[2021-07-30] MEDS: DULoxetine 30 MG Cap PO SCH (08:43)
[2021-07-30] MEDS: Simvastatin 40 MG Tab PO SCH (21:25)
[2021-07-31] MEDS: Levothyroxine 150 MCG Tab PO SCH (06:14)
[2021-07-31] MEDS: Pantoprazole 40 MG Tab.CR PO SCH (06:14)
[2021-07-31] MEDS: Gabapentin 100 MG Cap PO SCH ×3 (08:46→20:45)
[2021-07-31] MEDS: DULoxetine 30 MG Cap PO SCH (08:46)
[2021-07-31] MEDS: Docusate Sodium 100 MG Cap PO SCH (08:46)
[2021-07-31] MEDS: amLODIPine 5 MG Tab PO SCH (08:47)
[2021-07-31] MEDS: Calcium Polycarbophil 625 MG Tab PO SCH (08:47)
[2021-07-31] MEDS: Tolterodine 4 MG Cap.ER PO SCH (08:47)
[2021-07-31] MEDS: Metoprolol Tartrate 50 MG Tab PO SCH ×2 (08:47→20:45)
[2021-07-31] MEDS: Acetaminophen 500 MG Tab PO SCH (08:48)
[2021-07-31] MEDS: TRIAMCINOLONE ACETONIDE 0.1% TOP PRN ×2 (08:49→21:11)
[2021-07-31] MEDS: Cyanocobalamin (Vitamin B12) 1,000 MCG Tab PO SCH (08:49)
[2021-07-31] MEDS: Acetaminophen 500 MG Tab PO PRN (20:46)
[2021-08-01] MEDS: Pantoprazole 40 MG Tab.CR PO SCH (05:51)
[2021-08-01] MEDS: Levothyroxine 150 MCG Tab PO SCH (05:51)
[2021-08-01] MEDS: TRIAMCINOLONE ACETONIDE 0.1% TOP PRN ×2 (08:02→20:55)
[2021-08-01] MEDS: Docusate Sodium 100 MG Cap PO SCH (08:03)
[2021-08-01] MEDS: Calcium Polycarbophil 625 MG Tab PO SCH (08:04)
[2021-08-01] MEDS: DULoxetine 30 MG Cap PO SCH (08:04)
[2021-08-01] MEDS: Metoprolol Tartrate 50 MG Tab PO SCH ×2 (08:04→20:32)
[2021-08-01] MEDS: Tolterodine 4 MG Cap.ER PO SCH (08:04)
[2021-08-01] MEDS: amLODIPine 5 MG Tab PO SCH (08:04)
[2021-08-01] MEDS: Cyanocobalamin (Vitamin B12) 1,000 MCG Tab PO SCH (08:05)
[2021-08-01] MEDS: Gabapentin 100 MG Cap PO SCH ×3 (08:07→20:31)
[2021-08-01] MEDS: Nystatin Topical Powder 15 GM Bottle TOP SCH ×3 (12:37→20:35)
[2021-08-01] MEDS: Polyethylene Glycol 3350 Powder 17 GM Packet PO PRN (17:05)
[2021-08-01] MEDS: Acetaminophen 500 MG Tab PO PRN (20:31)
[2021-08-01] MEDS: Simvastatin 40 MG Tab PO SCH (20:35)
[2021-08-02] MEDS: Levothyroxine 100 MCG Tab PO SCH (06:07)
[2021-08-02] MEDS: Pantoprazole 40 MG Tab.CR PO SCH (06:07)
[2021-08-02] MEDS: amLODIPine 5 MG Tab PO SCH (08:11)
[2021-08-02] MEDS: Calcium Polycarbophil 625 MG Tab PO SCH (08:11)
[2021-08-02] MEDS: Tolterodine 4 MG Cap.ER PO SCH (08:11)
[2021-08-02] MEDS: Gabapentin 100 MG Cap PO SCH ×3 (08:11→20:55)
[2021-08-02] MEDS: Docusate Sodium 100 MG Cap PO SCH (08:11)
[2021-08-02] MEDS: Metoprolol Tartrate 50 MG Tab PO SCH ×2 (08:12→20:55)
[2021-08-02] MEDS: DULoxetine 30 MG Cap PO SCH (08:12)
[2021-08-02] MEDS: Cyanocobalamin (Vitamin B12) 1,000 MCG Tab PO SCH (08:13)
[2021-08-02] MEDS: Nystatin Topical Powder 15 GM Bottle TOP SCH ×3 (08:13→20:55)
[2021-08-02] MEDS: Acetaminophen 500 MG Tab PO PRN ×2 (13:10→20:56)
[2021-08-03] MEDS: Levothyroxine 150 MCG Tab PO SCH (06:18)
[2021-08-03] MEDS: Pantoprazole 40 MG Tab.CR PO SCH (06:18)
[2021-08-03] MEDS: Metoprolol Tartrate 50 MG Tab PO SCH ×2 (08:20→20:15)
[2021-08-03] MEDS: Tolterodine 4 MG Cap.ER PO SCH (08:21)
[2021-08-03] MEDS: amLODIPine 5 MG Tab PO SCH (08:21)
[2021-08-03] MEDS: Cyanocobalamin (Vitamin B12) 1,000 MCG Tab PO SCH (08:22)
[2021-08-03] MEDS: Docusate Sodium 100 MG Cap PO SCH (08:22)
[2021-08-03] MEDS: Gabapentin 100 MG Cap PO SCH ×3 (08:22→20:16)
[2021-08-03] MEDS: DULoxetine 30 MG Cap PO SCH (08:23)
[2021-08-03] MEDS: Nystatin Topical Powder 15 GM Bottle TOP SCH ×2 (08:23→20:17)
[2021-08-03] MEDS: Calcium Polycarbophil 625 MG Tab PO SCH (08:23)
[2021-08-03] MEDS: Simvastatin 40 MG Tab PO SCH (20:17)
[2021-08-03] MEDS: Acetaminophen 500 MG Tab PO PRN (20:18)
[2021-08-04] MEDS: Levothyroxine 100 MCG Tab PO SCH (05:06)
[2021-08-04] MEDS: Pantoprazole 40 MG Tab.CR PO SCH (05:06)
[2021-08-04] MEDS: DULoxetine 30 MG Cap PO SCH (08:31)
[2021-08-04] MEDS: Tolterodine 4 MG Cap.ER PO SCH (08:31)
[2021-08-04] MEDS: Docusate Sodium 100 MG Cap PO SCH (08:31)
[2021-08-04] MEDS: Calcium Polycarbophil 625 MG Tab PO SCH (08:31)
[2021-08-04] MEDS: Cyanocobalamin (Vitamin B12) 1,000 MCG Tab PO SCH (08:32)
[2021-08-04] MEDS: Nystatin Topical Powder 15 GM Bottle TOP SCH (08:32)
[2021-08-04] MEDS: Gabapentin 100 MG Cap PO SCH (08:34)
[2021-08-04] MEDS: TRIAMCINOLONE ACETONIDE 0.1% TOP PRN (08:35)
[2021-08-04 08:36] VITALS: BP 136/66; PULSE 73
[2021-08-04] MEDS: amLODIPine 5 MG Tab PO SCH (08:36)
[2021-08-04] MEDS: Metoprolol Tartrate 50 MG Tab PO SCH (08:36)
== END 2021-08-04 10:20 | DRG 950 ==
LOC: FB.MS 11:00 → OBSVTOIN 11:00
PROVIDERS: ADMIT Family Medicine; ATTEND Family Medicine
DX: S70.11XD Contusion of right thigh, subsequent encounter (principal); R53.1 Weakness; N18.9 Chronic kidney disease, unspecified; D72.10 Eosinophilia, unspecified; E11.22 Type 2 diabetes mellitus with diabetic chronic kidney disease; I12.9 Hypertensive chronic kidney disease with stage 1 through stage 4 chronic kidney disease, or unspecified chronic kidney disease; E78.5 Hyperlipidemia, unspecified; R26.89 Other abnormalities of gait and mobility; Z20.822 Contact with and (suspected) exposure to COVID-19; Z96.653 Presence of artificial knee joint, bilateral; S82.141D Displaced bicondylar fracture of right tibia, subsequent encounter for closed fracture with routine healing; Z85.528 Personal history of other malignant neoplasm of kidney; H91.90 Unspecified hearing loss, unspecified ear; H54.7 Unspecified visual loss; Z85.3 Personal history of malignant neoplasm of breast; E66.9 Obesity, unspecified; Z85.6 Personal history of leukemia; E78.00 Pure hypercholesterolemia, unspecified; K57.90 Diverticulosis of intestine, part unspecified, without perforation or abscess without bleeding; K44.9 Diaphragmatic hernia without obstruction or gangrene; M54.9 Dorsalgia, unspecified; G89.29 Other chronic pain; E03.9 Hypothyroidism, unspecified; Z88.8 Allergy status to other drugs, medicaments and biological substances; Z79.890 Hormone replacement therapy; Z79.899 Other long term (current) drug therapy; Z79.01 Long term (current) use of anticoagulants; Z90.49 Acquired absence of other specified parts of digestive tract; Z98.41 Cataract extraction status, right eye; Z98.42 Cataract extraction status, left eye; Z68.30 Body mass index [BMI] 30.0-30.9, adult
CPT/HCPCS: 71046; 74230; 82947; 92611-GN; 97110-GO; 97110-GP; 97530-GO; 97530-GP; 97535-GO; 97542-GO; 99222; A9270-GY; U0002

== ENCOUNTER 2021-09-20 11:46 | Emergency (ER) | payer MEDICARE, BC ==
[2021-09-20] MEDS: Acetaminophen 500 MG Tab PO ONE (12:16)
[2021-09-20] MEDS: Meclizine 12.5 MG Tab PO ONE (12:20)
[2021-09-20 13:41] VITALS: BP 143/72; PULSE 62
== END 2021-09-20 14:16 | disposition home or self-care (01) ==
LOC: FB.ED 11:46
DX: N39.0 Urinary tract infection, site not specified (principal); C92.00 Acute myeloblastic leukemia, not having achieved remission; E78.00 Pure hypercholesterolemia, unspecified; I10 Essential (primary) hypertension; E11.9 Type 2 diabetes mellitus without complications; E03.9 Hypothyroidism, unspecified; M10.9 Gout, unspecified; K21.9 Gastro-esophageal reflux disease without esophagitis; Z88.8 Allergy status to other drugs, medicaments and biological substances; Z79.899 Other long term (current) drug therapy
CPT/HCPCS: 36415; 70450; 80053; 81001; 84484; 85025; 86140; 87086; 87088; 87186; 99282; 99284-25; A9270-GY